=== PATIENT | male | born 1960 | race Caucasian/White ===

== ENCOUNTER 2022-09-02 14:54 | Observation (INO) | payer OTHER ==
[2022-09-02 15:02] VITALS: RESP 18; TEMP 97.7
--- NOTE | 2022-09-02 15:21 | ED ---
General Adult HPI <Alejandro Maloney - Last Filed: 09/02/22 17:10> - General Source: patient Mode of arrival: ambulatory Limitations: no limitations <Gisela Gonzalez - Last Filed: 09/02/22 23:27> - General Chief complaint: GI Bleed Stated complaint: Blood in stool Time Seen by Provider: 09/02/22 15:18 - History of Present Illness Initial comments: This is a 62-year-old male who presents emergency department stating that he has been having some rectal bleeding as of late has been a little bit worse so decided come to the emergency department to be evaluated. Patient states his been occurring on and off for many years. Patient states he does not have a primary medical care doctor has no one to follow up with her patient denies being on any blood thinners. Patient denies any abdominal pain. Patient denies feeling any external hemorrhoids. Patient states she's never had a colonoscopy. Patient denied to me any lightheadedness dizziness though he stated to the physician printing bindery assistant that he was somewhat lightheaded. Patient denies any chest pain difficulty breathing shortness of breath per patient any recent fever chills or cough. (Alejandro Maloney) 62-year-old female presents to the emergency department the chief complaint of rectal bleeding. Patient reports he's had this problem on and off for "years." (Gisela Gonzalez) - Related Data Home Medications Medication Instructions Recorded Confirmed No Known Home Medications 09/02/22 09/02/22 Allergies Allergy/AdvReac Type Severity Reaction Status Date / Time No Known Allergies Allergy Verified 09/02/22 17:28 Review of Systems ROS Other: All systems not noted in ROS Statement are negative. <Alejandro Maloney - Last Filed: 09/02/22 17:10> ROS Other: All systems not noted in ROS Statement are negative. <Gisela Gonzalez - Last Filed: 09/02/22 23:27> ROS Statement: Those systems with pertinent positive or pertinent negative responses have been documented in the HPI. Past Medical History Past Medical History: No Reported History History of Any Multi-Drug Resistant Organisms: None Reported Past Surgical History: No Surgical Hx Reported Past Psychological History: No Psychological Hx Reported Smoking Status: Never smoker Past Alcohol Use History: Occasional Past Drug Use History: None Reported <Gisela Gonzalez - Last Filed: 09/02/22 23:27> General Exam <Alejandro Maloney - Last Filed: 09/02/22 17:10> Limitations: no limitations <LisaGisela - Last Filed: 09/02/22 23:27> - General Exam Comments Initial Comments: GENERAL: Patient is well-developed and well-nourished. Patient is nontoxic and well- hydrated and is in no acute distress. ENT: Neck is soft and supple. No significant lymphadenopathy is noted. Oropharynx is clear. Moist mucous membranes. Neck has full range of motion without eliciting any pain. EYES: The sclera were anicteric and conjunctiva were pink and moist. Extraocular movements were intact and pupils were equal round and reactive to light. Eyelids were unremarkable. PULMONARY: Unlabored respirations. Good breath sounds bilaterally. No audible rales rhonchi or wheezing was noted. CARDIOVASCULAR: There is a regular rate and rhythm without any murmurs gallops or rubs. ABDOMEN: Soft and nontender with normal bowel sounds. SKIN: Skin is clear with no lesions or rashes and otherwise unremarkable. NEUROLOGIC: Patient is alert and oriented x3. Cranial nerves II through XII are grossly intact. Motor and sensory are also intact. Normal speech, volume and content. Symmetrical smile. MUSCULOSKELETAL: Normal extremities with adequate strength and full range of motion. LYMPHATICS: No significant lymphadenopathy is noted PSYCHIATRIC: Normal psychiatric evaluation. [id number] (Alejandro Maloney) Visual Physical Exam Vital signs reviewed General: Well-appearing, nontoxic, no acute distress. Head: Normocephalic, atraumatic Eyes: PERRLA, EOMI ENT: Airway patent Chest: Nonlabored breathing Skin: No visual rash, normal skin tone Neuro: Alert and oriented 3 Musculoskeletal: No gross abnormalities (Gisela Gonzalez) Course Vital Signs 09/02/22 09/02/22 09/02/22 15:00 18:16 20:21 Temperature 97.7 F Pulse Rate 73 61 71 Respiratory 18 18 18 Rate Blood Pressure 109/71 127/81 131/94 O2 Sat by Pulse 99 99 97 Oximetry Medical Decision Making - Lab Data Result diagrams: 09/02/22 15:19 09/02/22 15:19 <Alejandro Maloney - Last Filed: 09/02/22 17:10> - Lab Data Result diagrams: 09/02/22 15:19 09/02/22 15:19 <LisaGisela - Last Filed: 09/02/22 23:27> - Medical Decision Making Was pt. sent in by a medical professional or institution (, PA, COMPOSITE BOND TECHNICIAN, urgent care, hospital, or prison...) When possible be specific @ -No Did you speak to anyone other than the patient for history (EMS, parent, family, police, friend...)? What history was obtained from this source @ -No Did you review nursing and triage notes (agree or disagree)? Why? @ -I reviewed and agree with nursing and triage notes Were old charts reviewed (outside hosp., previous admission, EMS record, old EKG, old radiological studies, urgent care reports/EKG's, prison records)? Report findings @ -No old charts were reviewed Differential Diagnosis (chest pain, altered mental status, abdominal pain women, abdominal pain men, vaginal bleeding, weakness, fever, dyspnea, syncope, headac he, dizziness, GI bleed, back pain, seizure, CVA, palpatations, mental health, musculoskeletal)? @ -Differential GI Bleed: Esophageal varices, aortoenteric fistula, Leanne-Pastrana, gastritis, peptic ulcer disease, diverticulosis, inflammatory bowel disease, hemorrhoids, fissure, colitis, malignancy, Meckels diverticulum, this is not meant to be an all- inclusive list. EKG interpreted by me (3pts min.). @ -As above X-rays interpreted by me (1pt min.). @ -None done CT interpreted by me (1pt min.). @ -None done U/S interpreted by me (1pt. min.). @ -None done What testing was considered but not performed or refused? (CT, X-rays, U/S, labs)? Why? @ -None What meds were considered but not given or refused? Why? @ -None Did you discuss the management of the patient with other professionals (professionals i.e. , NATHALY, COMPOSITE BOND TECHNICIAN, lab, RT, psych nurse, social work faculty member, bilingual patient support caseworker, teacher, low altitude air defense officer, manager case)? Give summary @ -I spoke with Dr. Murray she agreed to admit the patient admitted the patient wrote admitting orders Was smoking cessation discussed for >3mins.? @ -No Was critical care preformed (if so, how long)? @ -No Were there social determinants of health that impacted care today? How? (Homelessness, low income, unemployed, alcoholism, drug addiction, transportation, low edu. Level, literacy, decrease access to med. care, retirement, rehab)? @ -No Was there de-escalation of care discussed even if they declined (Discuss DNR or withdrawal of care, Hospice)? DNR status @ -No What co-morbidities impacted this encounter? (DM, HTN, Smoking, COPD, CAD, Cancer, CVA, ARF, Chemo, Hep., AIDS, mental health diagnosis, sleep apnea, mo rbid obesity)? @ -None Was patient admitted / discharged? Hospital course, mention meds given and route, prescriptions, significant lab abnormalities, going to OR and other pertinent info. @ -Patient came in complaining of worsening rectal bleeding. Patient states she's had it intermittently for years but more recently has become quite heavy. Patient states he has never had a colonoscopy he does not have a physician to follow-up with. Patient did want to stay in the hospital to get it taken care of as soon as possible. I spoke with Dr. Murray she was in agreement with the admission I admitted the patient I wrote him he was a consult to GI Undiagnosed new problem with uncertain prognosis? @ -No Drug Therapy requiring intensive monitoring for toxicity (Heparin, Nitro, Insu frandy, Cardizem)? @ -No Were any procedures done? @ -No Diagnosis/symptom? @ -Rectal bleeding Acute, or Chronic, or Acute on Chronic? @ -Acute Uncomplicated (without systemic symptoms) or Complicated (systemic symptoms)? @ -, Located Side effects of treatment? @ -No Exacerbation, Progression, or Severe Exacerbation? @ -No Poses a threat to life or bodily function? How? (Chest pain, [place], [place], pneumonia, PE, COPD, DKA, ARF, appy, cholecystitis, CVA, Diverticulitis, Homicidal, Suicidal, threat to staff... and all critical care pts) @ -No (Alejandro Maloney) - Lab Data Lab Results 09/02/22 09/02/22 09/02/22 Range/Units 15:19 15:19 15:19 WBC 5.9 (3.8-10.6) k/uL RBC 4.80 (4.30-5.90) m/uL Hgb 14.4 (13.0-17.5) gm/dL Hct 40.0 (39.0-53.0) % MCV 83.2 (80.0-100.0) fL MCH 29.9 (25.0-35.0) pg MCHC 36.0 (31.0-37.0) g/dL RDW 13.4 (11.5-15.5) % Plt Count 188 (150-450) k/uL MPV 9.5 Neutrophils % 52 % Lymphocytes % 39 % Monocytes % 5 % Eosinophils % 2 % Basophils % 1 % Neutrophils # 3.1 (1.3-7.7) k/uL Lymphocytes # 2.3 (1.0-4.8) k/uL Monocytes # 0.3 (0-1.0) k/uL Eosinophils # 0.1 (0-0.7) k/uL Basophils # 0.0 (0-0.2) k/uL PT 10.5 (9.0-12.0) sec INR 1.0 (<1.2) APTT 25.2 (22.0-30.0) sec Sodium 136 L (137-145) mmol/L Potassium 4.5 (3.5-5.1) mmol/L Chloride 107 (98-107) mmol/L Carbon Dioxide 25 (22-30) mmol/L Anion Gap 4 mmol/L BUN 17 (9-20) mg/dL Creatinine 1.31 H (0.66-1.25) mg/dL Est GFR (CKD-EPI)AfAm 67 (>60 ml/min/1.73 sqM) Est GFR (CKD-EPI)NonAf 58 (>60 ml/min/1.73 sqM) Glucose 96 (74-99) mg/dL Calcium 9.2 (8.4-10.2) mg/dL Total Bilirubin 0.6 (0.2-1.3) mg/dL AST 32 (17-59) U/L ALT 28 (4-49) U/L Alkaline Phosphatase 71 (38-126) U/L Total Protein 7.4 (6.3-8.2) g/dL Albumin 4.5 (3.5-5.0) g/dL Disposition Time of Disposition: 17:00 <Alejandro Maloney - Last Filed: 09/02/22 17:10> <Gisela Gonzalez - Last Filed: 09/02/22 23:27> Clinical Impression: Rectal bleeding Disposition: Left Against Medical Advice Condition: Fair
[2022-09-02 15:35] LABS: Albumin 4.5 g/dL (3.5-5.0); Calcium 9.2 mg/dL (8.4-10.2); Potassium 4.5 mmol/L (3.5-5.1); Total Bilirubin 0.6 mg/dL (0.2-1.3); Total Protein 7.4 g/dL (6.3-8.2)
[2022-09-02 15:49] LABS: Basophils % (A) 1 %; Eosinophils # (A) 0.1 k/uL (0-0.7); Eosinophils % (A) 2 %; HGB 14.4 gm/dL (13.0-17.5); Lymphocytes # (A) 2.3 k/uL (1.0-4.8); Lymphocytes % (A) 39 %; MCH 29.9 pg (25.0-35.0); MCV 83.2 fL (80.0-100.0); Mean Platelet Volume 9.5; Monocytes # (A) 0.3 k/uL (0-1.0); Monocytes % (A) 5 %; Neutrophils # (A) 3.1 k/uL (1.3-7.7); Neutrophils % (A) 52 %; Platelet Count 188 k/uL (150-450); RDW 13.4 % (11.5-15.5); WBC 5.9 k/uL (3.8-10.6)
[2022-09-02 15:53] LABS: Partial Thromboplastin Time 25.2 sec (22.0-30.0); Prothrombin Time 10.5 sec (9.0-12.0)
[2022-09-02] MEDS ORDERED: SODIUM CHLORIDE 0.9% 1,000 ML IV ONE (17:12)
[2022-09-02] MEDS ORDERED: MAG HYDROX/AL HYDROX/SIMETH 30 ML CUP PO PRN (18:41)
[2022-09-02] MEDS ORDERED: DOCUSATE 100 MG CAP PO PRN (18:41)
[2022-09-02] MEDS ORDERED: NALOXONE 0.4 MG/ML 1 ML VIAL IV PRN (18:41)
[2022-09-02] MEDS ORDERED: ONDANSETRON 4 MG/2 ML VIAL IVP PRN (18:41)
[2022-09-02] MEDS ORDERED: ACETAMINOPHEN TAB 325 MG TAB PO PRN (18:41)
--- NOTE | 2022-09-02 18:42 | P.HPIM ---
History of Present Illness H&P Date: 09/02/22 Patient is a 62-year-old male with no significant past medical history that presents the ED for rectal bleeding. Patient reports bright red blood per rectum that has actually been ongoing for many years. Over the past 2 weeks, he has noticed an increase in the frequency which prompted him to come to the ED. He denies any headache, lower extremity edema, nausea or vomiting, fever or chills, cough, chest pain, shortness of breath, palpitations, changes in urination. No changes in appetite or weight. He denies any dizziness, numbness/weakness testing of the extremities. In the ED, his vital signs are stable. CBC was unremarkable. Coagulation panel was negative. CMP showed sodium 136 and creatinine 1.31. Patient is admitted for BRBPR with gastroenterology on consult. Pertinent positives and negatives as discussed in HPI, a complete review of systems was performed and all other systems are negative. General: non toxic, no distress, appears at stated age Derm: warm, dry Head: atraumatic, normocephalic, symmetric Eyes: EOMI, no lid lag, anicteric sclera Mouth: no lip lesion, mucus membranes moist Cardiovascular: S1S2 reg, no murmur Lungs: CTA bilateral, no rhonchi, no rales , no accessory muscle use Abdominal: soft, nontender to palpation, no guarding, no appreciable organo megaly Ext: no gross muscle atrophy, no edema, no contractures Neuro: CN II-XI grossly intact, no focal neuro deficits Psych: Alert, oriented, appropriate affect #Lower GI bleed #Elevated creatinine Based on my assessment of this patient, this patient meets a moderate complexity level of care. I have reviewed the following interventional sale consultant notes: None. I have reviewed the results of the following tests: CBC was unremarkable. Coagulation panel was negative. CMP showed sodium 136 and creatinine 1.31. I have ordered the following tests: CBC ordered for tomorrow morning. I have discussed the care of this patient with the following independent historian: None. I have independently interpreted the following test below: None. I have discussed the management of this patient with the following physician: The case was discussed with the ED physician and decision to admit the patient for evaluation by gastric neurology for possible colonoscopy. This patient has a moderate risk of morbidity due to the following reasons: Patient has a new diagnosis of rectal bleeding with uncertain prognosis. His hemoglobin is 14.4 today. The ED physician wanted to admit the patient for evaluation by gastroenterology for possible colonoscopy. Patient elected to be full code. SCD boots for DVT prophylaxis. Past Medical History Past Medical History: No Reported History History of Any Multi-Drug Resistant Organisms: None Reported Past Surgical History: No Surgical Hx Reported Past Psychological History: No Psychological Hx Reported Smoking Status: Never smoker Past Alcohol Use History: Occasional Past Drug Use History: None Reported Medications and Allergies Home Medications Medication Instructions Recorded Confirmed Type No Known Home Medications 09/02/22 09/02/22 History Allergies Allergy/AdvReac Type Severity Reaction Status Date / Time No Known Allergies Allergy Verified 09/02/22 17:28 Physical Exam Vitals: Vital Signs Temp Pulse Resp BP Pulse Ox 09/02/22 18:16 61 18 127/81 99 09/02/22 15:00 97.7 F 73 18 109/71 99 Intake and Output 09/02/22 09/02/22 09/02/22 06:59 14:59 22:59 Other: Weight 104.326 kg Results CBC & Chem 7: 09/02/22 15:19 09/02/22 15:19 Labs: Abnormal Lab Results - Last 24 Hours (Table) 09/02/22 Range/Units 15:19 Sodium 136 L (137-145) mmol/L Creatinine 1.31 H (0.66-1.25) mg/dL
[2022-09-02 20:23] VITALS: BP 131/94; PULSE 71
--- NOTE | 2022-09-03 10:05 | P.DS ---
Providers Date of admission: 09/02/22 17:13 Expected date of discharge: 09/03/22 Attending physician: Grace Murray DO Consults: 09/02/22 17:12 Consult Physician Urgent Consulting Provider: Sol Gutierrez Consult Reason/Comments: GI bleed Do you want consulting provider notified?: Yes Primary care physician: [facility] Hospital Course: THIS IS NOT A DISCHARGE SUMMARY BUT A SUMMARY OF CARE, PT LEFT AGAINST MEDICAL ADVICE ON 09/02/22 AT 11:18 PM ([id number]). Discharge Diagnosis: Lower GI bleed with reports of bright red blood per rectum, hemoglobin was stable at 14.4. Elevated creatinine. Hospital Course: Patient is a 62-year-old male with no reported past medical history that presented to the emergency department on 09/02/22 with a chief complaint of rectal bleeding. Patient reported bright red blood per rectum off and on for many years but increased in frequency over the past 2 weeks. Patient underwent full evaluation in the emergency department. CBC revealed a stable hemoglobin of 14.4 and platelet count of 188. Coagulation profile was unremarkable. BMP revealed mildly elevated creatinine of 1.31 with no previous labs available for comparison. Liver profile was unremarkable. Patient was admitted under our services with consultation to gastroenterology. Per nursing documentation in chart, patient reportedly requested to leave the hospital stating he did not want to wait to have a possible colonoscopy stating it was too loud in the hospital. Per documentation patient reportedly refused to sign AMA form and left hospital on 09/02/22 at: 11:18 PM. PATIENT LEFT AGAINST MEDICAL ADVICE ON 09/02/22 AT 11:18 PM ([id number]). I did not personal speak with or examine the patient, but just helped to prepare this documentation This document was prepared using [employer] dictation software. Please allow for errors in laborer/key man while rare they do occur. Nilay Jaramillo NP rendered care for this patient independently, reviewed the findings and plan as documented in the note above. I did not physically speak with or examine the patient on this date. Patient Condition at Discharge: Undetermined Plan - Discharge Summary New Discharge Prescriptions: No Action No Known Home Medications Discharge Medication List No Known Home Medications 09/02/22 [History] Follow up Appointment(s)/Referral(s): None,Stated [REFERRING] - 1-2 days Discharge Disposition: Left Against Medical Advice
== END 2022-09-02 23:18 | disposition left against medical advice (07) ==
LOC: EC 14:54 → 6NMEDSUR 17:13
PROVIDERS: ADMIT Internal Medicine; ATTEND Internal Medicine
DX: K62.5 Hemorrhage of anus and rectum (principal); R79.89 Other specified abnormal findings of blood chemistry; Z53.29 Procedure and treatment not carried out because of patient's decision for other reasons
CPT/HCPCS: 99285; 36415; 80053; 85025; 85610; 85730; G0378